=== PATIENT | female | born 1990 | race Caucasian/White ===

== ENCOUNTER 2018-04-12 06:45 | Inpatient (IN) ==
[2018-04-12] MEDS ORDERED: ONDANSETRON 4 MG/2 ML VIAL IV PRN ×2 (07:07→12:50)
[2018-04-12] MEDS: LACTATED RINGERS 1,000 ML IV SCH ×2 (07:13→07:47)
[2018-04-12] MEDS ORDERED: AMPICILLIN INJ 2,000 MG in SODIUM CHLORIDE 0.9% 100 ML IV ONE (07:14)
[2018-04-12] MEDS ORDERED: ePHEDrine 50 MG/ML AMP IV PRN (07:17)
[2018-04-12] MEDS ORDERED: CITRIC ACID/SODIUM CITRATE 30 ML UDCUP PO ONE (07:17)
[2018-04-12] MEDS ORDERED: ONDANSETRON 4 MG/2 ML VIAL IV ONE (07:17)
[2018-04-12] MEDS ORDERED: PROMETHAZINE 25 MG/1 ML VIAL IM ONE (07:17)
[2018-04-12] MEDS ORDERED: diphenhydrAMINE 50 MG/1 ML VIAL IV PRN ×2 (07:17)
[2018-04-12] MEDS ORDERED: hydrOXYzine HCL 25 MG/1 ML VIAL IM PRN (07:17)
[2018-04-12] MEDS ORDERED: FAMOTIDINE 20 MG/2 ML VIAL IV ONE (07:17)
[2018-04-12 07:18] LABS: Basophils # 0.1 10*3/uL (0.0-0.2); Basophils % 0.4 % (0.0-0.8); Eosinophils # 0.1 10*3/uL (0.0-0.87); Eosinophils % 0.5 % (0.00-10.9); Hematocrit 36.7 VOL% (35.7-47.0); Hemoglobin 12.6 GM/DL (12.0-16.0); Immature Granulocytes % 0.7 %; Immature Granulocytes Absolute 0.09 #; Lymphocytes % 14.9 % (21.3-54.2); Mean Corpuscular HGB Conc 34.3 GM/DL (32-36); Mean Corpuscular Hemoglobin 30 PG (27-34); Mean Corpuscular Volume 87.6 FL (87-102); Mean Platelet Volume 11.2 FL (9.6-12.0); Monocytes # 1.1 10*3/uL (0.11-0.8); Monocytes % 8.6 % (1.7-12.7); Neutrophils # 9.8 10*3/uL (1.4-7.4); Neutrophils % 74.9 % (38.7-73.9); Platelet Count 160 T/CUMM (130-400); Red Blood Count 4.19 MC/CUMM (3.8-5.5); Red Cell Distribution Width 13.9 % (9.3-17.3); White Blood Count 13.1 T/CUMM (4-12)
[2018-04-12] MEDS ORDERED: CITRIC ACID/SODIUM CITRATE 30 ML UDCUP ONE (07:23)
[2018-04-12] MEDS ORDERED: OXYTOCIN/LR 20 UNIT/1,000 ML BAG IV SCH (07:30)
[2018-04-12] MEDS ORDERED: fentaNYL 2 MCG/ROPIV 0.2% EPID 150 ML EPIDURAL SCH (07:30)
[2018-04-12 10:06] LABS: Amorphous Crystals,Urine Few /HPF (Few); Apearance,Urine Slightly Hazy (Clear); Bacteria,Urine Occasional /HPF (Few); Bilirubin,Urine Negative (Negative); Blood, Urine Negative (Negative); Glucose,Urine (UA) Negative (Negative); Ketones,Urine 20 mg/dL (Negative); Mucus,Urine Occasional /LPF (Occasional); Nitrite,Urine Negative (Negative); Protein,Urine Negative; RBC,Urine <1 /HPF (0-4); Squamous Epithelial Cell,Urine Occasional /HPF (0-10); Urine Color Yellow (Yellow); Urine Specific Gravity 1.014 (1.001-1.035); Urine Urobilinogen < 2.0 EU/DL (0.2-1.0); WBC,Urine 1 /HPF (0-6)
[2018-04-12] MEDS ORDERED: MEPERIDINE 50 MG/1 ML VIAL ONE (11:28)
[2018-04-12] MEDS ORDERED: LIDOCAINE 1% 50 ML VIAL ONE (11:29)
[2018-04-12] MEDS ORDERED: AMPICILLIN INJ 1,000 MG in SODIUM CHLORIDE 0.9% 100 ML IV SCH (11:30)
[2018-04-12] MEDS ORDERED: RHO(D) IMMUNE GLOBULIN 300 MCG SYRINGE IM ONE (12:50)
[2018-04-12] MEDS ORDERED: DIPH/TET/ACEL PERT BOOSTER VACCINE 0.5 ML VIAL IM ONE (12:50)
[2018-04-12] MEDS ORDERED: oxyCODONE/ACETAMINOPHEN 5-325 MG TABLET PO PRN ×2 (12:50)
[2018-04-12] MEDS ORDERED: HYDROCORTISONE 2.5% RECTAL CREAM 30 GM TUBE TOP PRN (12:50)
[2018-04-12] MEDS ORDERED: ACETAMINOPHEN 325 MG TABLET PO PRN (12:50)
[2018-04-12] MEDS ORDERED: OXYTOCIN/LR 20 UNIT/1,000 ML BAG IV ONE (12:50)
[2018-04-12] MEDS ORDERED: BENZOCAINE 20%/MENTHOL 0.5% SPRAY 56 GM CAN TOP PRN (12:50)
[2018-04-12] MEDS ORDERED: WITCH HAZEL PADS 100/JAR TOP PRN (12:50)
[2018-04-12] MEDS ORDERED: LANOLIN 50% CREAM 0.3 OZ TUBE TOP PRN (12:50)
[2018-04-12] MEDS ORDERED: BISACODYL 10 MG SUPP RECTAL PRN (12:50)
[2018-04-12] MEDS ORDERED: MEASLES/MUMPS/RUBELLA VACCINE 0.5 ML VIAL SUBCUT ONE (12:50)
[2018-04-12] MEDS: IBUPROFEN 800 MG TABLET PO PRN (18:52)
[2018-04-12] MEDS: DOCUSATE SODIUM 100 MG CAPSULE PO SCH (21:10)
[2018-04-13] MEDS: IBUPROFEN 800 MG TABLET PO PRN (03:23)
[2018-04-13 04:00] LABS: Basophils % 0.3 % (0.0-0.8); Eosinophils # 0.1 10*3/uL (0.0-0.87); Eosinophils % 0.4 % (0.00-10.9); Hemoglobin 10.5 GM/DL (12.0-16.0); Immature Granulocytes % 0.8 %; Immature Granulocytes Absolute 0.13 #; Lymphocytes # 1.9 10*3/uL (1.4-4.0); Lymphocytes % 12.2 % (21.3-54.2); Mean Corpuscular HGB Conc 33.9 GM/DL (32-36); Mean Corpuscular Hemoglobin 30 PG (27-34); Mean Corpuscular Volume 89.1 FL (87-102); Mean Platelet Volume 11.7 FL (9.6-12.0); Monocytes # 1.2 10*3/uL (0.11-0.8); Monocytes % 7.7 % (1.7-12.7); Neutrophils # 12.2 10*3/uL (1.4-7.4); Neutrophils % 78.6 % (38.7-73.9); Platelet Count 134 T/CUMM (130-400); Red Blood Count 3.48 MC/CUMM (3.8-5.5); Red Cell Distribution Width 14.3 % (9.3-17.3); White Blood Count 15.5 T/CUMM (4-12)
[2018-04-13] MEDS ORDERED: FERROUS SULFATE 325 MG TABLET PO SCH (09:00)
[2018-04-13] MEDS: MULTIVITAMIN (PRENATAL) TABLET PO SCH (09:28)
[2018-04-13] MEDS: DOCUSATE SODIUM 100 MG CAPSULE PO SCH ×2 (09:28→21:01)
[2018-04-14 07:14] VITALS: BP 105/62
[2018-04-14] MEDS: MULTIVITAMIN (PRENATAL) TABLET PO SCH (10:03)
[2018-04-14] MEDS: DOCUSATE SODIUM 100 MG CAPSULE PO SCH (10:03)
== END 2018-04-14 17:45 | disposition home or self-care (01) | DRG 775 ==
LOC: N.LDOUT 06:45 → N.LD 06:54 → N.OB 15:02
PROVIDERS: ADMIT Specialist; ATTEND Obstetrics & Gynecology